=== PATIENT | male | born 1995 | race African-American/Black ===

== ENCOUNTER 2018-12-13 17:17 | Emergency (ER) | payer BC, MEDICARE, MEDICAID ==
[~2018-12-13] VITALS: Ht 180.3 cm; Wt 88.9 kg
[2018-12-13] MEDS ORDERED: DILAUDID 2 MG TA2 MG PO (17:23)
[2018-12-13] MEDS ORDERED: OXYCONTIN10 M1 PO (17:23)
[2018-12-13] MEDS ORDERED: FOLIC ACID1 MG PO (17:23)
[2018-12-13] MEDS ORDERED: HYDREA 500 MG500 M1 PO (17:24)
[2018-12-13] MEDS ORDERED: METHADOSE5 MG PO (17:28)
[2018-12-13] MEDS ORDERED: OXYCODONE HCL10 MG PO (17:28)
[2018-12-13 18:31] LABS: ABSOLUTE BASOPHILS 0.1 thou/uL (0.0-0.2); ABSOLUTE EOSINOPHILS 0.1 thou/uL (0.0-0.7); ABSOLUTE LYMPHOCYTES 2.7 thou/uL (0.8-5.3); ABSOLUTE MONOCYTES 1.2 thou/uL (0.0-1.2); ABSOLUTE NEUTROPHILS 2.1 thou/uL (1.6-8.1); BASOPHILS 1.4 %; EOSINOPHILS 1.2 %; HEMATOCRIT 24.8 % (42.0-52.0); HEMOGLOBIN 8.8 gm/dL (14.0-18.0); LYMPHOCYTES 43.9 %; MCH 36.4 pg (26.0-34.0); MCHC 35.6 g/dL (28.0-37.0); MCV 102.3 fL (80.0-100.0); MONOCYTES 19.7 %; NUCLEATED RBCS 1 /100WBC; PLATELET COUNT* 127 thou/uL (150-400); POLYS 33.8 %; RBC 2.42 mil/uL (4.50-6.00); RDW-CV 20.3 % (10.5-14.5); WBC 6.1 thou/uL (4.0-11.0)
[2018-12-13 18:54] LABS: ANION GAP 11 mmol/L (7-16); BUN 6 mg/dL (7-18); CALCIUM 8.3 mg/dL (8.5-10.1); CHLORIDE 106 mmol/L (98-107); CO2 26 mmol/L (21-32); CREATININE 0.8 mg/dL (0.6-1.3); GLUCOSE 87 mg/dL (70-99); POTASSIUM 3.3 mmol/L (3.5-5.1); SODIUM 143 mmol/L (136-145); TROPONIN-I LEVEL <0.06 ng/mL (<0.06)
[2018-12-13 18:59] LABS: ALBUMIN 3.8 g/dL (3.4-5.0); ALKALINE PHOSPHATASE 101 U/L (46-116); SGOT 17 U/L (15-37); SGPT 24 U/L (30-65); TOTAL BILIRUBIN 1.5 mg/dL (<0.1-1.0); TOTAL PROTEIN 7.6 g/dL (6.4-8.2)
[2018-12-13 19:16] LABS: ANISOCYTOSIS 2+; PLATELET ESTIMATE DECREASED
[2018-12-13 19:17] LABS: HYPOCHROMASIA 1+; POIKILOCYTOSIS 1+
[2018-12-13 19:33] LABS: ESR (SEDRATE) 5 mm/hr (0-15)
[2018-12-13 20:02] VITALS: BP 109/67
--- NOTE | 2018-12-14 10:48 | EKG ---
[place] [address] ELECTROCARDIOGRAM REPORT Name: KWAKU RODRIGUEZ [facility] [id number] Admission: 12/13/18 Attend Phys: Discharge: 12/13/18 Date of : [birth year] Report #: [id number] THIS REPORT FOR: //name// [facility] ED Test Date: 2018-12-13 Test Time: 17:51:50 Pat Name: WKAKU RODRIGUEZ Department: Room: Gender: M [place]: : 1995 Requested By: Melissa Malik Order Number: [id number] MD: Reji Britton Measurements Intervals [place] Rate: 80 P: 2 SC: 160 QRS: 45 QRSD: 96 T: 7 QT: 385 QTc: 445 Interpretive Statements Sinus rhythm Atrial premature complex Probable left ventricular hypertrophy No previous ECG available for comparison Electronically Signed On 12-14-2018 10:48:03 CDT by Reji Britton [email or web address] <ELECTRONICALLY SIGNED> By: eRji Britton MD, [facility] 12/14/18 1048 1751 1751 Reji Britton MD, FACC /EPI
== END 2018-12-13 20:00 | disposition home or self-care (01) ==
LOC: M.ERS 17:17
PROVIDERS: Nurse Practitioner Family
DX: D57.1 Sickle-cell disease without crisis (principal); G89.29 Other chronic pain; M54.5 Low back pain; M54.6 Pain in thoracic spine; J45.909 Unspecified asthma, uncomplicated; Z88.6 Allergy status to analgesic agent; Z90.49 Acquired absence of other specified parts of digestive tract